=== PATIENT | female | born 1995 | race Caucasian/White ===

== ENCOUNTER 2017-02-13 16:37 | Emergency (ER) | payer MEDICARE ==
[2017-02-13] VITALS (15 sets, daily range): BP systolic 91–154
[~2017-02-13] VITALS: Ht 162.6 cm; Wt 90.7 kg
--- NOTE | 2017-02-13 | NUR ---
pt is awake off and on she states that she wants something to drink will notify nurse pt has no suicidal intentions at this timel
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
--- NOTE | 2017-02-13 16:41 | NUR ---
Suicide risk/lethality assessment, pt observation status assessment, patient and room/enviroment safety checklist forms fully completed and placed in paper chart. Pt being treated as high suicde risk.
--- NOTE | 2017-02-13 16:41 | NUR ---
Full suicide precautions in place, all contraband removed, patient fully undressed and placed in hospital gown. Curtain remaining open with continuous oberservation from nursing station. EMT Pancho remaining at bedside as continuous sitter. See paper charting.
--- NOTE | 2017-02-13 16:42 | NUR ---
Patient denies any homicidal ideation/thoughts of harming others, none noted.
--- NOTE | 2017-02-13 16:48 | NUR ---
Called Poison Control at [phone] and spoke with KATE GARNICA PHARMACIST. Per recommendations: WILL CAUSE MODERATE SEDATION, DRAW LABS AND EKG, CAN GIVE CHARCOAL IF DR FEELS NESSESARY. WATCH FOR ASPIRATION, WATCH FOR MINIMUM 4 HOURS, WATCH BP/HR CARDIAC MONITORING. Dr. SMITH notified. Will continue to monitor patient.
--- NOTE | 2017-02-13 16:50 | NUR ---
Security at bedside wanding pt, no contraband found, belongings sent with security with ID sticker for safe keeping.
--- NOTE | 2017-02-13 16:50 | NUR ---
Intermittent cardiac monitoring due to suicide risk-MD aware, stated okay. All wires removed by sitter following each examination.
[2017-02-13 17:04] LABS: BASOPHILS # (AUTO) 0.1 K/uL (0.0-0.2); BASOPHILS % (AUTO) 1.2 % (0.0-2.0); EOSINOPHILS # (AUTO) 0.5 K/uL (0.0-0.4); EOSINOPHILS % (AUTO) 4.9 % (0.0-4.0); HEMATOCRIT 36.2 % (36-48); HEMOGLOBIN 12.2 g/dL (12.0-16.0); LYMPHOCYTES # (AUTO) 2.3 K/uL (1.0-5.5); LYMPHOCYTES % (AUTO) 22.7 % (20.5-51.5); MEAN CORPUSCULAR HEMOGLOBIN 29 pg (27-31); MEAN CORPUSCULAR HGB CONC 34 % (32-36); MEAN CORPUSCULAR VOLUME 86 fL (79.0-98.0); MONOCYTES # (AUTO) 0.5 K/uL (0.0-1.0); MONOCYTES % (AUTO) 4.7 % (1.7-9.3); NEUTROPHILS # (AUTO) 6.7 K/uL (1.8-7.7); NEUTROPHILS % (AUTO) 66.5 % (40.0-70.0); PLATELET COUNT (AUTO) 268 K/uL (130-430); RED BLOOD CELL COUNT(AUTO) 4.23 MIL/uL (4.2-6.2); RED CELL DISTRIBUTION WIDTH 12.9 % (9.0-15.0); WHITE BLOOD COUNT (AUTO) 10.1 K/uL (4.8-10.8)
--- NOTE | 2017-02-13 17:05 | NUR ---
Patient went to restroom to provide urine, locked herself in bathroom. Patient left bathroom voluntarily after being instructed to do so for abotu 2 min.
[2017-02-13 17:15] LABS: ANION GAP 6 (5-15); CALCIUM 8.8 mg/dL (8.4-11.0); CHLORIDE 104 mmol/L (98-107); CREATININE 0.61 mg/dL (0.55-1.30); GLUCOSE 133 mg/dL (70-99); POTASSIUM 3.6 mmol/L (3.5-5.1); SODIUM SERUM 134 mmol/L (136-145); UREA NITROGEN, BLOOD 13 mg/dL (8-21)
[2017-02-13 17:19] LABS: ACETAMINOPHEN 10 ug/mL (1-30); ALANINE AMINOTRANSFERASE 57 U/L (12-78); ALBUMIN 3.5 g/dL (3.4-4.8); ASPARTATE AMINOTRANSFERASE 28 U/L (10-37); SALICYLATE 1 mg/dL (3-30); TOTAL BILIRUBIN 0.3 mg/dL (0.0-1.0); TOTAL PROTEIN, SERUM 7.6 g/dL (6.4-8.3)
[2017-02-13 17:20] LABS: ALCOHOL, BLOOD < 3 mg/dL (<10); GFR AFRICAN AMERICAN 159 mL/min (>90)
[2017-02-13 17:35] LABS: BILIRUBIN,URINE NEGATIVE (NEGATIVE); BLOOD, URINE 1+ (NEGATIVE); CLARITY/URINE CLEAR (CLEAR); COLOR,URINE YELLOW (YELLOW); GLUCOSE,URINE NEGATIVE (NEGATIVE); KETONES,URINE NEGATIVE (NEGATIVE); LEUKOCYTE ESTERASE ,URINE NEGATIVE (NEGATIVE); NITRITE, URINE NEGATIVE (NEGATIVE); PH,URINE 5.5 (5.0-8.0); PROTEIN URINE TRACE (NEGATIVE); UROBILINOGEN,URINE 0.2 (0.2-1.0)
--- NOTE | 2017-02-13 17:36 | NUR ---
Pt in stable condition, calmly speaking with staff. No signs of harming her self or others.
--- NOTE | 2017-02-13 17:41 | NUR ---
Pt in stable condition, calmly speaking with staff. No signs of harming her self or others. Pt calmly speaking with father at bedside.
[2017-02-13 17:43] LABS: HCG,QUAL RESULT NEGATIVE (NEGATIVE)
[2017-02-13 17:46] LABS: BARBITURATE, URINE NEGATIVE (NEG <=200); BENZODIAZEPINE, URINE POSITIVE (NEG <=150); CANNABINOID, URINE NEGATIVE (NEG <=50); COCAINE, URINE NEGATIVE (NEG <=150); METHAMPHETAMINES SCREEN,URINE NEGATIVE (NEG <=500); OPIATE, URINE NEGATIVE (NEG <=100); PHENCYCLIDINE SCREEN,URINE NEGATIVE (NEG <=25); UR TRICYCLIC ANTIDEPRESSANTS NEGATIVE (NEG <=300); URINE AMPHETAMINE NEGATIVE (NEG <=500); URINE METHADONE NEGATIVE (NEG <=200); URINE OXYCODONE SCREEN NEGATIVE (NEG <=100); URINE PROPOXYPHENE SCREEN NEGATIVE (NEG <=300)
[2017-02-13 17:52] LABS: BACTERIA,URINE FEW /HPF (None Seen); MUCUS,URINE None Seen /LPF (None Seen); RBC,URINE 0-3 /HPF (0-3); WBC,URINE 0-3 /HPF (0-3)
--- NOTE | 2017-02-13 18:01 | NUR ---
Pt sleeping, in stable condition. Family member at bedside.
--- NOTE | 2017-02-13 18:15 | NUR ---
Pt sleeping, in stable condition. Stabe vital signs
--- NOTE | 2017-02-13 18:30 | NUR ---
Stable condition, pt denies suicidal or homicidal ideation at this time, father at bedside. Sitter at bedside continuosly. Alert and oriented x4.
--- NOTE | 2017-02-13 18:30 | NUR ---
pt is sleeping her Dad is by pt bedside
--- NOTE | 2017-02-13 18:45 | NUR ---
Pt is sleeping no movement vital sign are stable
--- NOTE | 2017-02-13 18:45 | NUR ---
Wen hollingsworthjessica in ED - 02/13/17 at 1930 by CORDELIA Pt refusing to keep gown on, pt got out of bed although educated to remain in bed due to fall risk, pt walked back to bed with assist, stable condition,
--- NOTE | 2017-02-13 19:00 | NUR ---
Pt is sound asleep with family member at bedside
--- NOTE | 2017-02-13 19:00 | NUR ---
Pt in stable condition, sleeping in bed, no distress noted, easily wakens to name. Father at bedside. Sitter at bedside. Report given to George JAY.
--- NOTE | 2017-02-13 19:15 | NUR ---
Pt is sleeping no signs of suicidal or homicidal intentions family member by bedside
--- NOTE | 2017-02-13 19:15 | NUR ---
Patient placed on suicide precautions. Patient placed in room within close proximity to nurses' station for closer observation and monitoring. All clothing removed, placed in hospital gown. Metal detector wand used to further screen patient of any potential hazardous belongings. All belongings inventoried, placed in bags and removed from room. Pt has a sitter at all times.
--- NOTE | 2017-02-13 19:29 | NUR ---
Wen victor in [facility] - 02/13/17 at 1939 by CORDELIA Report given to Hernandez JAY-admit nurse, night nurse to transport pt.
--- NOTE | 2017-02-13 19:30 | NUR ---
pt is sound asleep no signs of homicidal intentions
--- NOTE | 2017-02-13 19:45 | NUR ---
pt is resting little movement frm taking vital signs charted vitals in icu charting
--- NOTE | 2017-02-13 20:00 | NUR ---
pt is sleeping family is at bedside
--- NOTE | 2017-02-13 20:15 | NUR ---
pt is sleeping family member at bedside .pt shows no signs of suicidal intentions
--- NOTE | 2017-02-13 20:20 | NUR ---
Spoke to Megha from Poison Control regarding update on patient. Patient is sleeping at this time. No acute distress noted at this time. Father at bedside.
--- NOTE | 2017-02-13 20:30 | NUR ---
pt is sound asleep no movement vitals signs are stable
--- NOTE | 2017-02-13 20:45 | NUR ---
PT IS SLEEPING NO SIGN OF SUICIDAL INTENTIONS FAMILY IS AT BEDSIDE
--- NOTE | 2017-02-13 21:00 | NUR ---
Pt is asleep no suicidal intentions Vital signs are stable
--- NOTE | 2017-02-13 21:05 | NUR ---
Pt sleeping at this time. No acute distress noted. Father at bedside. Sitter at bedside.
--- NOTE | 2017-02-13 21:15 | NUR ---
pt is awake wanted to turn on her side pt states she is feeling dizzy and complains of having a headache is the headache is an 8 nurse notified
--- NOTE | 2017-02-13 21:30 | NUR ---
pt is asleep no signs of suicidal thoughts family is here with pt
[2017-02-13] MEDS ORDERED: ACETAMINOPHEN 500 MG TABLET PO ONE (21:45)
--- NOTE | 2017-02-13 21:45 | NUR ---
Pt is sleeping vital signs are stable no signs of suicidal intentions
--- NOTE | 2017-02-13 22:00 | NUR ---
Pt is asleep family is at bedside
--- NOTE | 2017-02-13 22:00 | NUR ---
Tylenol held per father. Pt sleeping at this time. made aware.
--- NOTE | 2017-02-13 22:15 | NUR ---
pt is asleep no signs of suicide
--- NOTE | 2017-02-13 22:30 | NUR ---
pt is sound asleep no intentions of suicidal thoughts family is at bedside
--- NOTE | 2017-02-13 22:45 | NUR ---
pt is resting quietly with family member at bedside
--- NOTE | 2017-02-13 23:00 | NUR ---
pt is resting quietly light movement pt has no signs of suicidal intentions family is here at bedside
--- NOTE | 2017-02-13 23:15 | NUR ---
pt is sleeping seems to be out of it Doctor is here evaluation family member is at bedside
--- NOTE | 2017-02-13 23:29 | NUR ---
Mora from PET team at bedside to assess patient. Placement pending.
--- NOTE | 2017-02-13 23:30 | NUR ---
Pt is awake states she is in pain nurse is here to give medication family is at bedside
--- NOTE | 2017-02-13 23:45 | NUR ---
pt is awake she states she is in pain her head and stomach is hurting she states her pain is a 9
[2017-02-14] VITALS (31 sets, daily range): BP systolic 91–129
--- NOTE | 2017-02-14 00:15 | NUR ---
Pt is sitting up in bed no signs of of suicidal thoughts at the time family is at bedside
--- NOTE | 2017-02-14 00:31 | NUR ---
No adverse reactions noted after medication administration. Will continue to monitor.
--- NOTE | 2017-02-14 00:34 | NUR ---
Pt sleeping at this time. No acute distress noted. Father at bedside.
--- NOTE | 2017-02-14 00:53 | NUR ---
Pt sleeping at this time. No acute distress noted. Father at bedside.
--- NOTE | 2017-02-14 01:00 | NUR ---
Pt is sleeping no distress at this time father is at bedside
--- NOTE | 2017-02-14 01:15 | NUR ---
Pt is Sleeping no signs of distress family is still at bedside
--- NOTE | 2017-02-14 01:30 | NUR ---
Pt is sleeping no signs of distress
--- NOTE | 2017-02-14 01:45 | NUR ---
pt is asleep no signs of distress family here at bedside
--- NOTE | 2017-02-14 02:00 | NUR ---
pt is sleeping, in stable condition.Family at bedside
--- NOTE | 2017-02-14 02:15 | NUR ---
Pt is resting quietly, no signs of distress.Family at bedside
--- NOTE | 2017-02-14 02:30 | NUR ---
Pt is asleep,no sign of distress.Family is here at bedside
--- NOTE | 2017-02-14 02:45 | NUR ---
pt is asleep ,family at bedside . no signs of distress
--- NOTE | 2017-02-14 03:00 | NUR ---
Pt is sleeping,no signs of distress
--- NOTE | 2017-02-14 03:15 | NUR ---
pt sleeping.no distress
--- NOTE | 2017-02-14 03:30 | NUR ---
Pt is sound asleep,father here at bedside. no distress
--- NOTE | 2017-02-14 03:45 | NUR ---
Pt is sound asleep,no signs of distress
--- NOTE | 2017-02-14 04:00 | NUR ---
Pt is asleep ,vitals are stable. Pt shows no signs of distress
--- NOTE | 2017-02-14 04:15 | NUR ---
pt shows no signs of distress,family member at bedside.pt is asleep
--- NOTE | 2017-02-14 04:30 | NUR ---
Pt is awake she states that she is hungry notified the nurse.pt is up eating in bed shows no signs of distress
--- NOTE | 2017-02-14 04:45 | NUR ---
pt is awake talking to father at bedside ,pt shows no signs of distress.pt states she is not in any pain at this time.
--- NOTE | 2017-02-14 05:00 | NUR ---
pt is awake seems to be alert and oriented talking to father at bedside.no signs of distress
--- NOTE | 2017-02-14 05:15 | NUR ---
Pt is awake talking to father .pt is seems to be emotional speaking to Father.Pt is stable at this time
--- NOTE | 2017-02-14 05:30 | NUR ---
Patient assisted to restroom. Maintained visual checks on patient at all times. Denies any pain or dizziness at this time. Will continue to monitor.
--- NOTE | 2017-02-14 05:30 | NUR ---
pt is up using the bathroom,shows no signs of distress.pt is alert vital signs are stable
--- NOTE | 2017-02-14 05:45 | NUR ---
pt is up talking to Father no signs of distress
--- NOTE | 2017-02-14 06:00 | NUR ---
Pt is awake talking on the phone.no signs of distress.Father is here by bedside
[2017-02-14] MEDS ORDERED: DIPHENHYDRAMINE INJ 50 MG/ML VIAL IVP ONE ×2 (06:15→12:45)
--- NOTE | 2017-02-14 06:16 | NUR ---
PATIENT IS ALERT. FATHER IS AT BEDSIDE. NO SIGNS OF DISTRESS
--- NOTE | 2017-02-14 06:29 | NUR ---
patient is sleeping. father at bedside. no signs of distress.
--- NOTE | 2017-02-14 06:45 | NUR ---
patient asleep. no signs of distress. father at bedside.
--- NOTE | 2017-02-14 06:59 | NUR ---
patient sleeping. no signs of distress.
--- NOTE | 2017-02-14 07:00 | NUR ---
No adverse reactions noted after medication administration. Will continue to monitor.
--- NOTE | 2017-02-14 07:10 | NUR ---
Sitter at bedside. Report given to PIERRE Saucedo.
--- NOTE | 2017-02-14 07:15 | NUR ---
patient is sleeping. shows no signs of distress. father at bedside.
--- NOTE | 2017-02-14 07:20 | NUR ---
RECEIVED PT RESTING QUIETLY WITH DAD AT BEDSIDE. SITTER AT BEDSIDE WELL. SR ON MONITOR. VSS. NO C/O. ITCHING LESS AFTER BENADRYL.
--- NOTE | 2017-02-14 07:30 | NUR ---
patient asleep. shows no signs of distress. father at bedside.
--- NOTE | 2017-02-14 07:45 | NUR ---
patient is sleeping. no signs of distress. father at beside
--- NOTE | 2017-02-14 08:00 | NUR ---
patient asleep. no signs of distress. father at bedside.
--- NOTE | 2017-02-14 08:16 | NUR ---
patient resting. no signs of distress. father at bedside.
--- NOTE | 2017-02-14 08:30 | NUR ---
patient is sleeping. shows no signs of distress.
--- NOTE | 2017-02-14 08:45 | NUR ---
patient is asleep. shows no signs of distress.
--- NOTE | 2017-02-14 09:00 | NUR ---
patient sleeping. no signs of distress
--- NOTE | 2017-02-14 09:15 | NUR ---
patient asleep. no sign of distress
--- NOTE | 2017-02-14 09:30 | NUR ---
patient is awak and alert. speaking with father at bedside.
--- NOTE | 2017-02-14 09:45 | NUR ---
patient is alert. shows no signs of distress. father at bedside.
--- NOTE | 2017-02-14 10:00 | NUR ---
patient alert. sitting up in bed eating. father at bedside
--- NOTE | 2017-02-14 10:15 | NUR ---
patient is alert. sitting up in bed eating and talking to father at bedside.
--- NOTE | 2017-02-14 10:25 | NUR ---
PT ATE SOLID FOOD SITTING UP IN BED. NO N/V. PTS DAD VISITING AND PT INTERACTING WITH FATHER. ST ON MONITOR. VSS. Addendum: 02/14/17 at 1537 by MINERVACCUPTA SITTER AT BEDSIDE AND PT IN BED 1 UNDER CONTINIOUS SUPERVISION.
--- NOTE | 2017-02-14 10:30 | NUR ---
patient is alert and sitting up in bed. she is speaking with family at bedside
--- NOTE | 2017-02-14 10:45 | NUR ---
patient is alert, laying in bed. just returned from restroom.
--- NOTE | 2017-02-14 11:00 | NUR ---
patient is alert. laying in bed on the phone with family member. no signs of distress.
--- NOTE | 2017-02-14 11:16 | NUR ---
patient is alert. laying in bed, no signs of distress. patient is on the phone with family member
--- NOTE | 2017-02-14 11:30 | NUR ---
patient is alert. sitting up in bed speaking with family member at bed side. patient is emotional and crying.
--- NOTE | 2017-02-14 11:45 | NUR ---
patient is alert and sitting up in bed. patient appears emotional while speaking with family member at bed side.
--- NOTE | 2017-02-14 12:00 | NUR ---
patient is alert, sitting up in bed speaking with family member at bedside. patient complains of itchiness
--- NOTE | 2017-02-14 12:15 | NUR ---
patient is alert and sitting up in bed speaking with family member at bedside. no signs of distress.
--- NOTE | 2017-02-14 12:45 | NUR ---
PT SITTING UP IN BED VISITNG WITH DAD. ATE LUNCH. NO PAIN. SR ON MONITOR. VSS. STARTED CRYING WHEN OTHER FAMILY CAME IN TO VISIT. STILL WAITING FOR BED AVAILABILITY AT [facility]. PT REMAINS UNDER CONTINOUS SUPERVISION IN BED 1 AND SITTER REMAINS AT BEDSIDE AT ALL TIMES.
--- NOTE | 2017-02-14 13:01 | NUR ---
patient is alert and sitting up in bed, speaking with family at bedside.
--- NOTE | 2017-02-14 13:15 | NUR ---
Spoke with Abimbola at [facility] who states that they are accepting the patient is accepted at [facility]. Accepting MD is Dr. Bryan. Report can be called at 1400 to .
--- NOTE | 2017-02-14 13:15 | NUR ---
patient is alert, laying in bed speaking with family member at bedside. no signs of distress
--- NOTE | 2017-02-14 13:30 | NUR ---
patient alert. sitting up in bed eating. family member at bedside. no signs of distress
--- NOTE | 2017-02-14 13:45 | NUR ---
patient alert and sitting up in bed eating. family member at bedside. no signs of distress
--- NOTE | 2017-02-14 14:00 | NUR ---
patient alert and laying in bed. family member at bedside. no signs of distress
--- NOTE | 2017-02-14 14:15 | NUR ---
patient laying in bed speaking with family member at bedside. no signs of distress,
--- NOTE | 2017-02-14 14:23 | NUR ---
Endorsed to Carlos JAY at [facility].
--- NOTE | 2017-02-14 14:30 | NUR ---
patient awake and alert. laying in bed with no signs of distress. family member at bedside.
--- NOTE | 2017-02-14 14:45 | NUR ---
patient alert, laying in bed with no signs of distress. father at bedside.
--- NOTE | 2017-02-14 15:00 | NUR ---
patient alert, laying in bed talking with family members at bedside.
--- NOTE | 2017-02-14 15:15 | NUR ---
patient alert. sitting up in bed. complains of nausea. father at bedside.
--- NOTE | 2017-02-14 15:30 | NUR ---
patient alert, sitting up in bed speaking with father at bedside. no signs of distress.
--- NOTE | 2017-02-14 15:39 | NUR ---
INTERACTING WITH FAMILY AT BEDSIDE. REMAINS UNDER CONTINOUS SUPERVISION WITH SITTER AT BEDSIDE AND IN BED 1 FOR NURSING OBSERVATION. SR ON MONITOR. VSS. HAS NO COMPLAINTS.
--- NOTE | 2017-02-14 15:45 | NUR ---
patient resting in bed. family at bedside. no signs of distress.
--- NOTE | 2017-02-14 16:15 | NUR ---
Patient to be transferred to [facility]. PT Is being transferred due to higher level of care. Receiving facility has accepting physician and heather PTilable space. ER physician has signed transfer form. Patient or responsible democrat has agreed to transfer and signed form. Patient belongings inventoried and will be sent with patient. Copy of HOLD,nursing notes, lab reports, EKG, Physicians NOTE. Report called to at receiving facility. ambulance service has been called for transfer. ETA is NOW, THEY ARE HERE. REPORT GIVEN TO EMT AND PAPERWORK GIVEN TO THEM WELL. SALINE LOCK REMOVED FROM LEFT WRIST AND BANDAIDE APPLIED. NO BLEEDING. FATHER WITH PT. PT ASSISTED TO [facility] AND LEFT IN AMBULANCE WITH EMT'S. PT COOPERATIVE FOR TRANSFER.
== END 2017-02-14 16:15 ==
LOC: SED 16:37
DX: R45.851 Suicidal ideations (principal); T42.4X1A Poisoning by benzodiazepines, accidental (unintentional), initial encounter; Z91.02 Food additives allergy status; Y92.89 Other specified places as the place of occurrence of the external cause
CPT/HCPCS: 36415; 80053; 80307; 81000; 84703; 85025; 93005; 96374; 96376; 99285; G0480; G0481; G0482; J1200; 96375